=== PATIENT | male | born 1955 | race Caucasian/White ===

== ENCOUNTER 2021-05-28 19:25 | Observation (INO) | payer MEDICARE, OTHER ==
[~2021-05-28] VITALS: Ht 177.8 cm; Wt 81.0 kg
[2021-05-28] MEDS ORDERED: SODIUM CHLORIDE FLUSH 10ML SYR IVF ONE ×2 (20:00→22:30)
[2021-05-28 20:40] LABS: ALBUMIN 3.7 g/dL (3.4-5.0); ANION GAP 7 mmol/L (5-15); CALCIUM 8.9 mg/dL (8.5-10.1); CHLORIDE 103 mmol/L (98-107)
[2021-05-28 20:42] LABS: BASOPHILS % (AUTO) 1 % (0-1); EOSINOPHILS % (AUTO) 2 % (1-7); LYMPHOCYTES % (AUTO) 26 % (22-44); MEAN CORPUSCULAR HEMOGLOBIN 31.4 pg (27.5-34.5); MEAN CORPUSCULAR HGB CONC 34.8 g/dL (33.2-36.2); MEAN PLATELET VOLUME 8.3 fL (7.4-10.4); MONOCYTES % (AUTO) 10 % (2-9); NEUTROPHILS % (AUTO) 61 % (42-75); PLATELET COUNT 208 x10^3/uL (130-400); RED BLOOD COUNT 5.32 x10^6/uL (4.38-5.82); RED CELL DISTRIBUTION WIDTH 13.1 % (9.4-14.8)
[2021-05-28 20:44] LABS: ALANINE AMINOTRANSFERASE 34 U/L (12-78); ALKALINE PHOSPHATASE 73 U/L (45-117); BILIRUBIN,TOTAL 0.9 mg/dL (0.2-1.0); CREATININE 0.69 mg/dL (0.7-1.3); TOTAL PROTEIN 7.2 g/dL (6.4-8.2)
--- NOTE | 2021-05-28 20:46 | NUR ---
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
--- NOTE | 2021-05-28 20:57 | NUR ---
PT PRESENTS WITH PAIN ON RIGHT GROIN, STATES HE HAS A HERNIA BUT HAS BEEN UNABLE TO PUSH BACK IN TODAY.
--- NOTE | 2021-05-28 21:05 | NUR ---
ULTRASOUND AT BEDSIDE.
[2021-05-28] MEDS ORDERED: PROPOFOL 10 MG/ML, 20ML ONE ×3 (21:26→23:02)
[2021-05-28] MEDS ORDERED: PROPOFOL 10 MG/ML, 20ML IVPush ONE (21:30)
[2021-05-28] MEDS ORDERED: ONDANSETRON 2MG/ML, 2ML ONE ×2 (22:01→23:08)
[2021-05-28] MEDS ORDERED: HYDROmorphone 2 MG/ML, 1ML ONE (22:07)
[2021-05-28] MEDS ORDERED: SODIUM CHLORIDE 0.9% 1,000ML IVBOLUS ONE (22:30)
[2021-05-28] MEDS ORDERED: HYDROmorphone 1 MG/ML, 1ML INJ IV ONE (22:30)
[2021-05-28] MEDS ORDERED: ONDANSETRON 2MG/ML, 2ML IVPush ONE (22:30)
--- NOTE | 2021-05-28 22:38 | NUR ---
DR. LÓPEZ AT BEDSIDE.
--- NOTE | 2021-05-28 23:00 | NUR ---
pt to or.
[2021-05-28] MEDS ORDERED: FENTANYL PF 250 MCG/5ML ONE (23:02)
[2021-05-28] MEDS ORDERED: SUCCINYLCHOLINE 20 MG/ML, 10ML ONE (23:03)
[2021-05-28] MEDS ORDERED: EPINEPHRINE 1 MG/ML, 1ML ONE (23:03)
[2021-05-28] MEDS ORDERED: BUPIVACAINE/PF 0.5% ONE (23:03)
[2021-05-28] MEDS ORDERED: DEXAMETHASONE 4 MG/ML, 1ML ONE (23:07)
[2021-05-28] MEDS ORDERED: BUPIVACAINE/PF-EPI 0.5% 1:200K INFIL ONE (23:07)
[2021-05-28] MEDS ORDERED: ROCURONIUM 10MG/ML,5ML ONE (23:07)
[2021-05-28] MEDS ORDERED: CEFOTETAN 2 GM ONE (23:08)
[2021-05-28] MEDS ORDERED: KETOROLAC 30 MG/1 ML ONE (23:10)
[2021-05-28] MEDS ORDERED: LABETALOL 5MG/ML, 20ML IV PRN (23:30)
[2021-05-28] MEDS ORDERED: FENTANYL PF 100 MCG/2ML IV PRN (23:30)
[2021-05-28] MEDS ORDERED: hydrALAzine 20 MG/ML, 1ML IV PRN (23:30)
[2021-05-28] MEDS ORDERED: LACTATED RINGERS 1,000 ML IV SCH (23:30)
[2021-05-28] MEDS ORDERED: OXYcodone 5 MG/5 ML ORAL.SOL UDC PO PRN (23:30)
[2021-05-28] MEDS ORDERED: PROMETHAZINE 25 MG/ML, 1ML IVPush PRN (23:30)
[2021-05-28] MEDS ORDERED: ACETAMINOPHEN 325 MG TABLET PO PRN (23:30)
[2021-05-28] MEDS ORDERED: MELATONIN 5 MG TABLET PO PRN (23:30)
[2021-05-28] MEDS ORDERED: ONDANSETRON 2MG/ML, 2ML IVPush PRN (23:30)
[2021-05-28] MEDS ORDERED: HYDROmorphone 1 MG/ML, 1ML INJ IVPush PRN (23:30)
[2021-05-29] MEDS ORDERED: MEPERIDINE/PF 25MG/ML,1ML ONE (00:34)
[2021-05-29 00:57] VITALS: BP 139/84
[2021-05-29] MEDS ORDERED: MEPERIDINE/PF 25MG/0.5ML IVPush PRN (01:00)
[2021-05-29 04:05] VITALS: BP 121/79
[2021-05-29 05:50] LABS: BASOPHILS % (AUTO) 0 % (0-1); EOSINOPHILS % (AUTO) 0 % (1-7); LYMPHOCYTES % (AUTO) 4 % (22-44); MEAN CORPUSCULAR HEMOGLOBIN 30.9 pg (27.5-34.5); MEAN CORPUSCULAR HGB CONC 34.4 g/dL (33.2-36.2); MEAN PLATELET VOLUME 8.2 fL (7.4-10.4); MONOCYTES % (AUTO) 2 % (2-9); NEUTROPHILS % (AUTO) 93 % (42-75); PLATELET COUNT 172 x10^3/uL (130-400); RED BLOOD COUNT 4.83 x10^6/uL (4.38-5.82); RED CELL DISTRIBUTION WIDTH 12.9 % (9.4-14.8)
[2021-05-29 06:05] LABS: ANION GAP 6 mmol/L (5-15); CALCIUM 8.2 mg/dL (8.5-10.1); CHLORIDE 106 mmol/L (98-107)
[2021-05-29 06:07] LABS: CREATININE 0.78 mg/dL (0.7-1.3)
[2021-05-29 07:29] VITALS: BP 118/76
[2021-05-29 11:13] VITALS: BP 127/75
== END 2021-05-29 11:30 | disposition home or self-care (01) ==
LOC: ED 22:10 → EDIP 23:21 → 4NE 05-29 00:51
PROVIDERS: ADMIT Internal Medicine; ATTEND Internal Medicine
DX: K40.30 Unilateral inguinal hernia, with obstruction, without gangrene, not specified as recurrent (principal); Z20.822 Contact with and (suspected) exposure to COVID-19; N50.819 Testicular pain, unspecified; Z88.1 Allergy status to other antibiotic agents
CPT/HCPCS: 36415; 49507; 80048; 80053; 83735; 84100; 85025; 87635; 96374; 96375; 99284; C1781; G0378; J0171; J0330; J1100; J1170; J1885; J2175; J2405; J2704; J3010; J7030; J7120; S0020